=== PATIENT | female | born 2000 | race Caucasian/White ===

== ENCOUNTER 2019-07-20 10:44 | Inpatient (IN) | payer OTHER ==
--- NOTE | 2019-07-20 11:02 | ED ---
Psychiatric Complaint - HPI Summary HPI Summary: The patient is a 18 y/o F arriving by ambulance as 945 to [facility] from [facility] with a chief complaint of suicidal ideation and difficulty retaining memory gradually progressing for a month. She reports that she has been experiencing increasing thoughts of suicide, but she is unable to recall when these feelings began because she has also been unable to recall events both long -term and short-term. She made a list of dates and events that occurred, as well as times she has felt suicidal; thoughts of suicide in June, hopelessness, wrapping a cord around neck and jumping off the ledge of the library because she feels that she doesnt have a lot of friends or support. She has a history of anxiety but has not been medicated or been admitted for mental health before. No other PMHx. Mother has history of social issues, which the patient states she relates to. Nonsmoker, no EtOH, no substance use. Medications reviewed. Allergies noted. - History Of Current Complaint Chief Complaint: EDMentalHealth Time Seen by Provider: 07/20/19 10:44 Hx Obtained From: Patient Onset/Duration: Gradual Onset, Lasting Weeks, Still Present Severity Initially: Moderate Severity Currently: Moderate Character: Anxious Aggravating Factor(s): Other - social issues Alleviating Factor(s): Nothing Related History: Positive For: Prior Psychiatric Issues - anxiety Has Suicidal: Reports: Thoughts, With A Plan - Allergies/Home Medications Allergies/Adverse Reactions: Allergies Allergy/AdvReac Type Severity Reaction Status Date / Time amoxicillin Allergy Unknown Verified 07/20/19 11:25 Reaction Details eucalyptus Allergy Unknown Verified 07/20/19 11:25 Reaction Details Home Medications: Home Medications Multivitamins/Minerals TAB* [Theragran/minerals TAB*] 1 tab PO DAILY 07/20/19 [ History Confirmed 07/20/19] PMH/Surg Hx/FS Hx/Imm Hx Respiratory History: Denies: Hx Asthma Psychiatric History: Reports: Hx Anxiety - Surgical History Surgical History: None Surgery Procedure, Year, and Place: none Infectious Disease History: No Infectious Disease History: Denies: Traveled Outside the [place] in Last 30 Days - Family History Known Family History: Positive: Other - "social problems" in mother Negative: Cardiac Disease, Hypertension, Diabetes - Social History Alcohol Use: None Hx Substance Use: No Substance Use Type: Reports: None Hx Tobacco Use: No Smoking Status (MU): Never Smoked Tobacco Review of Systems Neurological: Other - difficulty with retaining memory Psychological: Other - sucidial ideation All Other Systems Reviewed And Are Negative: Yes Physical Exam - Summary Physical Exam Summary: Constitutional: Well-developed, Well-nourished, Alert. (-) Distressed Skin: Warm, Dry HENT: Normocephalic; Atraumatic Eyes: Conjunctiva normal Neck: Musculoskeletal ROM normal neck. (-) JVD, (-) Stridor, (-) Nuchal rigidity Cardio: Rhythm regular, rate normal, Heart sounds normal; Intact distal pulses; Radial pulses are 2+ and symmetric. (-) Murmur Pulmonary/Chest wall: Effort normal. (-) Respiratory distress, (-) Wheezes, (-) Rales Abd: Soft, (-) tenderness, (-) Distension, (-) Guarding, (-) Rebound Musculoskeletal: (-) Edema Lymph: (-) Cervical adenopathy Neuro: Alert, Oriented x3 Psych: Anxious Triage Information Reviewed: Yes Vital Signs On Initial Exam: Initial Vitals Temp Pulse Resp BP Pulse Ox 98.3 F 81 18 109/70 98 07/20/19 10:46 07/20/19 10:46 07/20/19 10:46 07/20/19 10:46 07/20/19 10:46 Vital Signs Reviewed: Yes - Eladia Coma Scale Best Eye Response: 4 - Spontaneous Best Motor Response: 6 - Obeys Commands Best Verbal Response: 5 - Oriented Coma Scale Total: 15 Procedures - Sedation Patient Received Moderate/Deep Sedation with Procedure: No Diagnostics - Vital Signs Vital Signs Temp Pulse Resp BP Pulse Ox 07/20/19 10:46 98.3 F 81 18 109/70 98 - Laboratory Result Diagrams: 07/20/19 11:04 07/20/19 11:04 Lab Statement: Any lab studies that have been ordered have been reviewed, and results considered in the medical decision making process. - CT Brain CT CT Interpretation Completed By: Radiologist Summary of CT Findings: Impression: No acute intracranial abnormality. Posterior fossa extra-axial cyst, compatible with an adenoid cystic. ED physician has reviewed this report. Re-Evaluation - Re-Evaluation First Eval Re-Evaluation Time: 11:00 Comment: Patient is medically clear for MHE. Second Eval Re-Evaluation Time: 13:15 Comment: Patient moved to [facility] for evaluation. She is calm and cooperative. Third Eval Re-Evaluation Time: 17:30 Comment: Dr. Farr, psychiatry, would like a Brain CT for the patient. Course/Dx - Course Course Of Treatment: 18 history of anxiety presents with suicidal ideation in the setting of social stressors as well as concern for memory loss. Physical exam normal neuro exam. Patient has extensive descriptions of intermittent memory loss, this is been a chronic ongoing event since high school, no new symptoms. Patient alert and oriented 3. Does not warrant further investigation at this time. Could be secondary to her concurrent psychiatric problems versus neurologic problems. We'll give outpatient neurologic referral. Patient to be seen by mental health team for suicidal ideation. Psychiatrist recommended head CT which is negative. Patient to be admitted to psychiatry. - Differential Dx/Clinical Impression Provider Diagnosis: Mood disorder - Physician Notifications Discussed Care Of Patient With: Komal Baumann - mental health warp dresser Time Discussed With Above Provider: 19:00 Instructed by Provider To: Other - Komal reports that Dr. Farr, psychiatry, has evaluated the patient and has determined that the patient is appropriate for admission, involuntarily; diagnosis of mood disorder Discharge ED - Sign-Out/Discharge Documenting (check all that apply): Patient Departure - Patient accepted for admission by Dr. Farr. - Discharge Plan Condition: Stable Disposition: PSYCHIATRIC FACILITY-[facility] [place] - Billing Disposition and Condition Condition: STABLE Disposition: Psychiatric Facility [facility] [place] - Attestation Statements Document Initiated by Laciee: Yes Documenting Scribe: Azul Moody Provider For Whom Rex is Documenting (Include Credential): Dr. Maurice Caceres MD Scribe Attestation: Azul Serrano scribed for Dr. Maurice Caceres MD on 07/20/19 at 2141. Scribe Documentation Reviewed: Yes Provider Attestation: The documentation as recorded by the Azul bautista accurately reflects the service I personally performed and the decisions made by me, Dr. Maurice Caceres MD Status of Scribe Document: Viewed
[2019-07-20 11:12] LABS: ABS Monocytes 0.3 10^3/ul (0-0.8); ABS Neutrophils 3.1 10^3/ul (1.5-7.7); Eosinophil % 0.8 %; Hematocrit 36 % (35-47); Hemoglobin 12.6 g/dL (12.0-16.0); Lymphocyte % 22.9 %; Mean Corpuscular HGB Conc 35 g/dL (31-36); Mean Corpuscular Hemoglobin 32 pg (27-31); Mean Corpuscular Volume 93 fL (80-97); Mean Platelet Volume 7.4 fL (7.4-10.4); Nucleated Red Blood Cells % 0.1; Platelet Count 296 10^3/uL (150-450); Red Blood Count 3.89 10^6 /uL (3.70-4.87); Red Cell Distribution Width 13 % (10-15); White Blood Count 4.5 10^3/uL (3.5-10.8)
[2019-07-20 11:35] LABS: ALT 21 U/L (7-52); AST 20 U/L (13-39); Albumin 4.1 g/dL (3.2-5.2); Alkaline Phosphatase 40 U/L (34-104); Anion Gap 5 mmol/L (2-11); BUN/Creatinine Ratio 21.7 (8-20); Blood Urea Nitrogen 13 mg/dL (6-24); CO2 Carbon Dioxide 29 mmol/L (22-32); Calcium 9.2 mg/dL (8.6-10.3); Chloride 105 mmol/L (101-111); EGFR African American 155.8 (>60); EGFR Non-African American 128.8 (>60); Globulin 2.1 g/dL (2-4); Glucose 103 mg/dL (70-100); HCG Pregnancy < 0.60 mIU/mL; Potassium 4.4 mmol/L (3.5-5.0); Sodium 139 mmol/L (135-145); Total Protein 6.2 g/dL (6.4-8.9)
[2019-07-20 11:55] LABS: TSH (Thyroid Stimulating Horm) 0.86 mcIU/mL (0.34-5.60)
[2019-07-20 12:17] LABS: Alcohol < 10 mg/dL (<10); Salicylate < 2.50 mg/dL (<30)
[2019-07-20 12:20] LABS: Acetaminophen < 15 mcg/mL
[2019-07-20 12:34] LABS: Urine Appearance Clear; Urine Bilirubin Negative (Negative); Urine Blood 1+ (Negative); Urine Color Yellow; Urine Glucose Negative (Negative); Urine Ketones Negative (Negative); Urine Nitrite Negative (Negative); Urine Protein Negative (Negative); Urine Specific Gravity 1.009 (1.010-1.030); Urine Urobilinogen Negative (Negative)
[2019-07-20 12:39] LABS: Urine Bacteria 1+ (Absent); Urine Red Blood Cell 2+(6-10/hpf) (Absent); Urine Squamous Epithelial Cell Present (Absent); Urine White Blood Cell Trace(0-5/hpf) (Absent)
[2019-07-20 13:02] LABS: Urine Benzodiazepine Screen None Detected (None Detect); Urine Opiates Screen None Detected (None Detect)
[2019-07-20] MEDS ORDERED: Al Hydrox/Mg Hydrox/Simet LIQ* 30 ML UDC PO PRN (22:09)
[2019-07-20] MEDS ORDERED: Acetaminophen TAB* 325 MG PO PRN (22:09)
[2019-07-20] MEDS ORDERED: risperiDONE TAB* 1 MG PO ONE (22:30)
--- NOTE | 2019-07-21 10:45 | HP ---
H&P (Free Text) History and Physical: Justification for admission: Immediate Safety. CC " I want to end my life" The patient was brought to [facility] by EMS sent by [facility]. The patient identifies being unable to remember names or events and becomes upset and believes there is something wrong with her. Over the last month she has felt suicidal with a plan to hang herself or jump into a gorge. She created a timeline that includes the things she is unable to remember. She thinkings about the things she is unable to remember over 12 times a day and that it causes her a great deal of distress leading her to think about suicide. She reported that she has not been socializing much. Denied access to firearms or stockpiles of medications. She reported excessive sleep and normal appetite. The patient denied homicidal ideation intent or plan. The patient denied auditory and/ or visual hallucinations. MDD She reported feeling depressed and having diminished interests which were found to be enjoyable in the past. She reported having crying spells , feeling empty inside, feelings of hopelessness , and worthlessness. Denied unintentional weight loss and appetite. Denied interruption of sleep , or feeling tired throughout the day. Denied oss of energy or lack of motivation to complete tasks. She reported having recurrent thoughts of . Anxiety Denied having panic attacks.She worries often about anything that she can worry about during that time. She has had uncomfortable or intrusive thoughts. She expressed that if she hits her foot on the chair she will purposely have to hit her other foot on the chair. Bipolar Denied symptoms of eric such as having many ideas at once. Denied increased talkativeness where no one can interrupt. Denied feeling irritable most of the time while having an persistent abundance of energy most of the day without the use of energy drinks, stimulants, or recreational drug use. Denied an increase in intensity in goal directed activities. Denied having the decreased need to sleep for days , having prolonged elevated mood , or feeling on top of the world. Denied impulsive risky sexual encounters. Denied spending money recklessly , going on spending sprees wiping out savings. Denied impulsively traveling out of town or country, having super elliott, and unrealistic wealth or fame. Psychosis Does not endorse hearing things that other people do not hear or seeing things other people do not see. Denied feeling that TV is making references. Denied feeling that people are spying , following , or reading their thoughts. Phobias: Patient denied having excessive fear of a particular thing or situation. Eating disorders: Patient denied having excessive eating habits or feelings of guilt after eating. Denied repeated episodes of self induced vomiting after eating. PTSD Denied flashbacks, nightmares and avoidance of a prior traumatic event. PAST PSYCHIATRIC HISTORY: Prior Diagnosis : None History of past Psychiatric Hospitalizations: No prior psychiatric admission. History of past suicide/homicide attempts : Denied past suicide attempts or self injurious behaviors. No history of violence. [facility] Medications: No prior trials of medication Guardianship: None. FAMILY HISTORY: - Suicide: Denied family history of suicide. - Mental illness: Aunt depression - Substance abuse: Uncle abuses alcohol SUBSTANCE ABUSE HISTORY: Denied using tobacco, heroin cocaine or other illicit substances. Denied abusing pills for recreational use. Denied past Substance abuse treatment. - EtOH: Used on a few occasions < 3 drinks in social setting. No associated legal issues, blackouts, seizures, DTs or past hospitalizations due to alcohol. SOCIAL HISTORY: - Denied a history of childhood physical and or sexual abuse Only child, [place] [facility] and raised by both parents. - Education: [employer] Student - Living situation: Currently lives in [facility] - Relationship: Single and has no children. - Legal history: Denied - service history: Denied PAST MEDICAL HISTORY: Denied heart disease, diabetes, cancer and/ or other medical conditions. - Allergies: Amoxicillin Eucalyptus Physical Exam: Please see ED note Mental Status Exam on Admission APPEARANCE : 18 year old female who appears stated age. Patient is not malodourous, and appears to have fair hygiene and grooming. BEHAVIOR: Cooperative , calm EYE CONTACT: Fair PSYCHOMOTOR ACTIVITY: No psychomotor agitation or retardation. MOVEMENTS: No abnormal movements observed. SPEECH : Normal rate, rhythm, volume and tone. MOOD : "Depressed " AFFECT : Type is depressed, Range is restricted Mood Congruent THOUGHT PROCESS: Formulated and organized in a logical, linear goal directed manner. No flight of ideas, neologism (made up words) , perseveration , tangential , loose associations , or circumstantiality. THOUGHT CONTENT: preoccupation about memory PERCEPTION: No current auditory or visual hallucinations. Doesnt appear to be responding to internal cues. No evidence of depersonalization , de-realization, or illusions SUICIDALITY suicidal ideation with plan. HOMICIDALITY Denied homicidal ideation, intent or plan. Insight/judgment: Fair insight and judgment ORIENTATION: Oriented to self, location, and time. Diagnosis on Admission: Major depressive disorder without psychotic features, Obsessive compulsive Disorder, generalized anxiety disorder. Assessment: 18 year old Female with no prior psychiatric histor came to the hospital with suicidal ideation and was admitted to the BSU at [facility]. Plan #Admit to BSU, Q15 minute observation. Start regular diet. Encourage participation in activities on the milieu. #Patient evaluated in ED and was determined by the emergency room Physician to be medically fit for admission to the BSU. # Justification for Admission: For immediate safety per outlined in the [facility] Hygiene Code. # The patient requires psychiatric inpatient admission at this time to assure safety, receive treatment and work toward stabilization. # Labs ordered: CBC, CMP, UDS, TSH, HBA1c, TSH, Toxicology screen, Urine analysis, and lipid profile. # MMPI ordered # EEG ordered # CT brain with out contrast completed results show posterior fossa extra axial cyst (which patient is aware of having since childhood) and no acute intercranial abnormality. Consult with the radiologist revealed that this is a arachnoid cyst and is a normal variant. # B-HCG was ordered and results are negative. # Obtain collateral information once release is signed. # Collaboration with Social Work # Start luvox 50mg po daily for depression , anxiety and OCD. #Goals before discharge include: To eliminate/ reduce suicidal ideation Tentative Discharge: Pending psychiatric stabilization The risks, benefits, and alternative treatment options were discussed as well as the risks of refusing treatment. After this discussion and an acknowledgement of this understanding was made. A risk/ benefit assessment of treatment was considered and discussed with the patient. When comparing the risks of treatment with the dangers of not receiving treatment, the benefits of treatment outweigh the treatment risks at this time. Risks of allergy, suicidal ideation, behavioral changes, dystonia, rashes, electrolyte imbalances, movement disorders, cardiac conduction changes, serotonin syndrome, metabolic risks were among some of the risks discussed. Sodium 139 mmol/L (135-145) 07/20/19 11:04 Potassium 4.4 mmol/L (3.5-5.0) 07/20/19 11:04 BUN 13 mg/dL (6-24) 07/20/19 11:04 Creatinine 0.60 mg/dL (0.51-0.95) 07/20/19 11:04 Calcium 9.2 mg/dL (8.6-10.3) 07/20/19 11:04 AST 20 U/L (13-39) 07/20/19 11:04 ALT 21 U/L (7-52) 07/20/19 11:04
[2019-07-21] MEDS: Vitamin THERAPEUTIC TAB PO SCH (12:05)
[2019-07-21] MEDS: CMCS: FluvoxaMINE (NF) 50 MG TAB PO SCH (14:34)
--- NOTE | 2019-07-21 19:52 | EEG ---
ELECTROENCEPHALOGRAPHY REPORT: DATE OF STUDY: 07/21/19 - ROOM #213 ORDERED BY: Lito Martinez MD. INDICATION: Ms. Pete is a 18-year-old female admitted to BSU for suicidal ideation. The patient has difficulty retaining information with gradual regression. She has memory loss both long and short term. She has trouble recalling her childhood without pictures. Since June, the patient has been having suicide thoughts. This EEG was obtained to evaluate for any epileptiform abnormalities or electrographic seizures. MEDICATIONS: 1. Multivitamin. 2. Tylenol. 3. Maalox. CLINICAL STATE: Awake and asleep. REPORT: The waking background showed appropriate organization with clearly defined anterior-posterior voltage and frequency gradients. There was a well- defined posterior dominant rhythm of 10 Hz, which was symmetrical and showed normal reactivity. Anteriorly, there was an expected pattern of lower voltage, irregular mixed faster frequency. Attenuation of the occipital rhythm accompanied drowsiness. The sleep background was appropriately organized with well-developed spindles and vertex waves. These sleep transients showed appropriate morphology and are bilaterally synchronous and symmetrical. Hyperventilation and photic stimulation were not performed. Duration of the recording 12:22 to 12:48. EKG showed a normal sinus rhythm with a rate of 60 beats per minute. CLINICAL IMPRESSION: This is a normal awake and asleep EEG. There were no epileptiform discharges or electrographic seizures. A normal interictal EEG does not exclude nor support the diagnosis of epilepsy. [id number]/[facility] #: [id number] MTDD
[2019-07-22 08:37] LABS: HDL Cholesterol 40.2 mg/dL
[2019-07-22] MEDS: Vitamin THERAPEUTIC TAB PO SCH (09:03)
[2019-07-22] MEDS: CMCS: FluvoxaMINE (NF) 50 MG TAB PO SCH (09:03)
--- NOTE | 2019-07-22 10:32 | PN ---
Subjective - Subjective Date of Service: 07/22/19 Service Type: 24033 Hosp care 35 min high complexity Subjective: Nursing Report: Patient was visible on unit, no behavioral incidents. Slept overnight. Attending group activities. CC: "I dont know what is wrong with me Patient was seen and evaluated today in the common room. The patient reported she feels horrible about herself. She often thinks (1-10 x daily) about the possibility of her parents . She reported having low energy levels. She often worries what others think of her and inquired what was said in treatment time about her. She feels powerless when she does not have control of situations She reported having adequate appetite and sleep. The patient reports attending and participating in day groups. Per nursing no behavioral issues or overnight events reported. Patient reported that she is tolerating medications without side effects. Objective - General Observations Appearance: Neat Appears Stated Age: Yes Stature: WNL Posture: WNL Eye Contact: Average Behavior/Activity: WNL - Interaction Observations Attitude Towards Examiner: Cooperative Stated Mood: Dysphoric Affect: Blunted Speech Pattern/Tone: Quiet Volume Thought Process: Coherent Perception: WNL Thought Content: Self-Deprecatory Hallucination Type: None Delusion Type: None - Cognitive Function Orientation: A&O x 4 Level of Consciousness: Awake - Medication Compliance Cooperative with Inpatient Medication Regimen: Yes - Group Participation Participates in Group Activities: Yes Assessment - Assessment Merits Inpatient Hospitalization: For Immediate Safety Clinical Impression: 18 year old Female with no prior psychiatric histor came to the hospital with suicidal ideation and was admitted to the BSU at [facility]. Plan - Plan Treatment Plan: Name: JOCELYN BLAKE Birthdate: 2000 [id number] #Q30 minute observation with staff pass . # The patient requires psychiatric inpatient admission at this time to assure safety, receive treatment and work toward stabilization. 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 Consult with the radiologist revealed that this is a arachnoid cyst and is a normal variant. # B-HCG was ordered and results are negative. # Obtained collateral information from mother # Collaboration with Social Work # Increase luvox 100mg po daily. #Goals before discharge include: To eliminate/ reduce suicidal ideation Tentative Discharge: Pending psychiatric stabilization Sodium 139 mmol/L (135-145) 07/20/19 11:04 Potassium 4.4 mmol/L (3.5-5.0) 07/20/19 11:04 BUN 13 mg/dL (6-24) 07/20/19 11:04 Creatinine 0.60 mg/dL (0.51-0.95) 07/20/19 11:04 Hemoglobin A1c 4.9 % (4.0-5.6) 07/22/19 07:57 Calcium 9.2 mg/dL (8.6-10.3) 07/20/19 11:04 AST 20 U/L (13-39) 07/20/19 11:04 ALT 21 U/L (7-52) 07/20/19 11:04 Triglycerides 78 mg/dL 07/22/19 07:57 Cholesterol 164 mg/dL 07/22/19 07:57 LDL Cholesterol 108 mg/dL 07/22/19 07:57 Continued Medication Management: Continue Outpt Medication Medications: Current Medications Acetaminophen (Tylenol Tab*) 650 mg PO Q4H PRN PRN Reason: PAIN or TEMP > 101 F Al Hydrox/Mg Hydrox/Simethicone (Maalox Plus*) 30 ml PO Q4H PRN PRN Reason: INDIGESTION Fluvoxamine Maleate (Luvox (Nf)) 100 mg PO DAILY [facility] Fluvoxamine Maleate (Fluvoxamine (Nf)) 50 mg PO ONCE ONE Stop: 07/22/19 11:01 Multivitamins (Theragran Tab*) 1 tab PO DAILY [facility] Last Admin: 07/22/19 09:03 Dose: 1 tab - Discharge Plan Discharge Plan: Inpatient Hospitalization
[2019-07-22] MEDS ORDERED: FLUVOXAMINE 50 MG PO ONE (11:00)
[2019-07-23] MEDS: FLUVOXAMINE 100 MG PO SCH (09:12)
[2019-07-23] MEDS: Vitamin THERAPEUTIC TAB PO SCH (09:14)
--- NOTE | 2019-07-23 11:46 | PN ---
BSU: Group Therapy Note - Service Type Service Type: 33038 Group Psychotherapy - Cognitive Behavioral Group Therapy ( CBT):Patient was attentive and participatory in CBT programming this morning, and remained in good behavioral control. Patient expressed positive insights regarding relevant treatment interventions and goals.
--- NOTE | 2019-07-23 14:24 | PN ---
Subjective - Subjective Date of Service: 07/23/19 Service Type: [id number] Hosp care 35 min high complexity Subjective: Nursing Report: Patient was visible on unit, no behavioral incidents. Slept overnight. Attending group activities. CC: "I dont see any changes Patient was seen and evaluated today in the common room. The patient reported she feels nervous around other peers on the unit. She reported that sometimes her parents " drive me crazy". She reported that she is doing well in school but considering taking time away from school. She believes that she doesn't have friends however 2 friends visited her in the hospital. She reported having adequate appetite and sleep. The patient reports attending and participating in day groups. Per nursing no behavioral issues or overnight events reported. Patient reported that she is tolerating medications without side effects. Objective - General Observations Appearance: Neat Stature: WNL Posture: WNL Eye Contact: Average Behavior/Activity: WNL - Interaction Observations Attitude Towards Examiner: Cooperative Stated Mood: Dysphoric Affect: Restricted Speech Pattern/Tone: Quiet Volume Thought Process: Goal Directed Perception: Derealization Thought Content: Preoccupation/Ruminations Hallucination Type: None Delusion Type: None - Cognitive Function Orientation: A&O x 4 Level of Consciousness: Awake Cognition: WNL Judgment Within Normal Limits: Yes - Medication Compliance Cooperative with Inpatient Medication Regimen: Yes - Group Participation Participates in Group Activities: Yes Assessment - Assessment Merits Inpatient Hospitalization: For Immediate Safety Clinical Impression: 18 year old Female with no prior psychiatric histor came to the hospital with suicidal ideation and was admitted to the BSU at [facility]. Plan - Plan Treatment Plan: Name: JOCELYN BLAKE Birthdate: 2000 [id number] #Q30 minute observation with staff pass . # Further neuropsych testing with Dr. Hernandez # The patient requires psychiatric inpatient admission at this time to assure safety, receive treatment and work toward stabilization. 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 Consult with the radiologist revealed that this is a arachnoid cyst and is a normal variant. # B-HCG was ordered and results are negative. # Obtained collateral information from mother # Family meeting took place with father on phone and mother in person they confirmed no stockpiles of medication or access to firearms # Collaboration with Social Work # Patient would benefit from CBT therapy with focus on realigning cognitive distortions #Continue luvox 100mg po daily. #Goals before discharge include: To eliminate/ reduce suicidal ideation Tentative Discharge: Pending psychiatric stabilization Sodium 139 mmol/L (135-145) 07/20/19 11:04 Potassium 4.4 mmol/L (3.5-5.0) 07/20/19 11:04 BUN 13 mg/dL (6-24) 07/20/19 11:04 Creatinine 0.60 mg/dL (0.51-0.95) 07/20/19 11:04 Hemoglobin A1c 4.9 % (4.0-5.6) 07/22/19 07:57 Calcium 9.2 mg/dL (8.6-10.3) 07/20/19 11:04 AST 20 U/L (13-39) 07/20/19 11:04 ALT 21 U/L (7-52) 07/20/19 11:04 Triglycerides 78 mg/dL 07/22/19 07:57 Cholesterol 164 mg/dL 07/22/19 07:57 LDL Cholesterol 108 mg/dL 07/22/19 07:57 Continued Medication Management: Continue Outpt Medication Medications: Current Medications Acetaminophen (Tylenol Tab*) 650 mg PO Q4H PRN PRN Reason: PAIN or TEMP > 101 F Al Hydrox/Mg Hydrox/Simethicone (Maalox Plus*) 30 ml PO Q4H PRN PRN Reason: INDIGESTION Fluvoxamine Maleate (Fluvoxamine (Nf)) 100 mg PO DAILY [facility] Last Admin: 07/23/19 09:12 Dose: 100 mg Multivitamins (Theragran Tab*) 1 tab PO DAILY [facility] Last Admin: 07/23/19 09:14 Dose: 1 tab - Discharge Plan Discharge Plan: Inpatient Hospitalization
[2019-07-24] MEDS: Vitamin THERAPEUTIC TAB PO SCH (08:22)
[2019-07-24] MEDS: FLUVOXAMINE 100 MG PO SCH (08:22)
--- NOTE | 2019-07-24 15:21 | PN ---
Subjective - Subjective Date of Service: 07/24/19 Service Type: 23410 Hosp care 15 min low complexity Subjective: Janice is seen in weekend coverage for Dr. Martinez. She endorses continued SI, as recently as this morning, but without plans or intent. Earlier today she had been experiencing somewhat intense feelings of restlessness and inability to sit still that responded well to a one time dose of propranolol. She is doing her school work on her computer and endorses speaking with the diversity manager at [employer] about accommodations to get caught up once she's discharged. Objective - General Observations Appearance: Well Groomed Appears Stated Age: Yes Stature: WNL Posture: WNL Eye Contact: Average Behavior/Activity: WNL - Interaction Observations Attitude Towards Examiner: Cooperative Stated Mood: Anxious Affect: Restricted Speech Pattern/Tone: Clear Thought Process: Coherent Thought Content: Preoccupation/Ruminations, Obsessional Thought Process: Lethality: Passive Wish Hallucination Type: None Delusion Type: None - Cognitive Function Orientation: A&O x 4 Level of Consciousness: Awake Cognition: WNL Estimated Intelligence: Above Normal Insight: WNL - Medication Compliance Cooperative with Inpatient Medication Regimen: Yes - Group Participation Participates in Group Activities: Yes Assessment - Assessment Merits Inpatient Hospitalization: For Immediate Safety, For Stabilization Inpatient DSM-V Dx: F32.2 Clinical Impression: 18 year old Female with no prior psychiatric histor came to the hospital with suicidal ideation and was admitted to the BSU at [facility]. BSU: Problem List - Patient Problems (1) MDD (major depressive disorder), single episode, severe Current Visit: Yes Status: Acute Priority: High Code(s): F32.2 - MAJOR DEPRESSV DISORD, SINGLE EPSD, SEV W/O PSYCH FEATURES SNOMED Code(s): 169924136813 Plan - Plan Treatment Plan: Name: JANICE BLAKE Birthdate: 2000 [id number] #Q30 minute observation with staff pass . # Further neuropsych testing with Dr. Hernandez # The patient requires psychiatric inpatient admission at this time to assure safety, receive treatment and work toward stabilization. 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 Consult with the radiologist revealed that this is a arachnoid cyst and is a normal variant. # B-HCG was ordered and results are negative. # Obtained collateral information from mother # Family meeting took place with father on phone and mother in person they confirmed no stockpiles of medication or access to firearms # Collaboration with Social Work # Patient would benefit from CBT therapy with focus on realigning cognitive distortions #Continue luvox 100mg po daily. #Goals before discharge include: To eliminate/ reduce suicidal ideation Tentative Discharge: Pending psychiatric stabilization Sodium 139 mmol/L (135-145) 07/20/19 11:04 Potassium 4.4 mmol/L (3.5-5.0) 07/20/19 11:04 BUN 13 mg/dL (6-24) 07/20/19 11:04 Creatinine 0.60 mg/dL (0.51-0.95) 07/20/19 11:04 Hemoglobin A1c 4.9 % (4.0-5.6) 07/22/19 07:57 Calcium 9.2 mg/dL (8.6-10.3) 07/20/19 11:04 AST 20 U/L (13-39) 07/20/19 11:04 ALT 21 U/L (7-52) 07/20/19 11:04 Triglycerides 78 mg/dL 07/22/19 07:57 Cholesterol 164 mg/dL 07/22/19 07:57 LDL Cholesterol 108 mg/dL 07/22/19 07:57 Continued Medication Management: Start Medication Medications: Current Medications Acetaminophen (Tylenol Tab*) 650 mg PO Q4H PRN PRN Reason: PAIN or TEMP > 101 F Al Hydrox/Mg Hydrox/Simethicone (Maalox Plus*) 30 ml PO Q4H PRN PRN Reason: INDIGESTION Fluvoxamine Maleate (Fluvoxamine (Nf)) 100 mg PO DAILY [facility] Last Admin: 07/24/19 08:22 Dose: 100 mg Multivitamins (Theragran Tab*) 1 tab PO DAILY [facility] Last Admin: 07/24/19 08:22 Dose: 1 tab Propranolol HCl (Inderal Tab*) 20 mg PO BID PRN PRN Reason: akathisia - Discharge Plan Discharge Plan: Inpatient Hospitalization
[2019-07-25] MEDS: Vitamin THERAPEUTIC TAB PO SCH (08:23)
[2019-07-25] MEDS: FLUVOXAMINE 100 MG PO SCH (08:23)
[2019-07-26] MEDS: Vitamin THERAPEUTIC TAB PO SCH (08:47)
[2019-07-26] MEDS: FLUVOXAMINE 100 MG PO SCH (08:47)
--- NOTE | 2019-07-26 11:30 | PN ---
Subjective - Subjective Date of Service: 07/26/19 Service Type: 37130 Hosp care 35 min high complexity Subjective: Nursing Report: Patient was visible on unit, no behavioral incidents. Slept overnight. Attending group activities. CC: "Nothing has changed Patient was seen and evaluated today in the comfort room. The patient reported she feels that she is not normal and that there is something wrong with her. She reported having distress over not being able the things in CBT group this morning. She reported having no symptomatic relief from anxiety. Her friends visited over the weekend. She had thoughts of ending it all after thinking about the time she went on a date and thought something was wrong with the sangeeta and thought to herself that there is something wrong with her. She reported having adequate appetite. She reported sleeping to the point where she has trouble with getting out of bed. The patient reports attending and participating in day groups. Per nursing no behavioral issues or overnight events reported. Patient reported that she is tolerating medications without side effects. Objective - General Observations Appearance: Neat Appears Stated Age: Yes Stature: WNL Posture: WNL Eye Contact: Average Behavior/Activity: WNL - Interaction Observations Attitude Towards Examiner: Anxious Stated Mood: Anxious Affect: Restricted Speech Pattern/Tone: Perseverating Thought Process: Goal Directed Perception: WNL Thought Content: Depressive Thought Process: Lethality: Passive Wish Hallucination Type: Denies Delusion Type: Denies - Cognitive Function Orientation: A&O x 4 Level of Consciousness: Awake Cognition: WNL - Medication Compliance Cooperative with Inpatient Medication Regimen: Yes - Group Participation Participates in Group Activities: Yes Assessment - Assessment Merits Inpatient Hospitalization: For Immediate Safety Inpatient DSM-V Dx: F32.2 Clinical Impression: 18 year old Female with no prior psychiatric histor came to the hospital with suicidal ideation and was admitted to the BSU at [facility]. Plan - Plan Treatment Plan: Name: JOCELYN BLAKE Birthdate: 2000 [id number] #Q30 minute observation with staff pass . # Further neuropsych testing with Dr. Hernandez # The patient requires psychiatric inpatient admission at this time to assure safety, receive treatment and work toward stabilization. 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 Consult with the radiologist revealed that this is a arachnoid cyst and is a normal variant. # B-HCG was ordered and results are negative. # Obtained collateral information from mother # Family meeting took place with father on phone and mother in person they confirmed no stockpiles of medication or access to firearms # Collaboration with Social Work # Patient would benefit from CBT therapy with focus on realigning cognitive distortions #Discontinue luvox 100mg po daily # Start cymbalta 20mg daily for now, acknowledge enzyme inhibition can increase serum concentrations # Start propranolol 10mg BID for anxiety #Goals before discharge include: To eliminate/ reduce suicidal ideation Tentative Discharge: Pending psychiatric stabilization Sodium 139 mmol/L (135-145) 07/20/19 11:04 Potassium 4.4 mmol/L (3.5-5.0) 07/20/19 11:04 BUN 13 mg/dL (6-24) 07/20/19 11:04 Creatinine 0.60 mg/dL (0.51-0.95) 07/20/19 11:04 Hemoglobin A1c 4.9 % (4.0-5.6) 07/22/19 07:57 Calcium 9.2 mg/dL (8.6-10.3) 07/20/19 11:04 AST 20 U/L (13-39) 07/20/19 11:04 ALT 21 U/L (7-52) 07/20/19 11:04 Triglycerides 78 mg/dL 07/22/19 07:57 Cholesterol 164 mg/dL 07/22/19 07:57 LDL Cholesterol 108 mg/dL 07/22/19 07:57 Continued Medication Management: Continue Outpt Medication Medications: Current Medications Acetaminophen (Tylenol Tab*) 650 mg PO Q4H PRN PRN Reason: PAIN or TEMP > 101 F Al Hydrox/Mg Hydrox/Simethicone (Maalox Plus*) 30 ml PO Q4H PRN PRN Reason: INDIGESTION Duloxetine HCl (Cymbalta Cap*) 20 mg PO DAILY [facility] Multivitamins (Theragran Tab*) 1 tab PO DAILY [facility] Last Admin: 07/26/19 08:47 Dose: 1 tab Propranolol HCl (Inderal Tab*) 20 mg PO BID PRN PRN Reason: akathisia - Discharge Plan Discharge Plan: Inpatient Hospitalization
[2019-07-26] MEDS: DULoxetine DR CAP* 20 MG CAP.DR PO SCH (12:48)
[2019-07-27] MEDS: Vitamin THERAPEUTIC TAB PO SCH (10:02)
[2019-07-27] MEDS: DULoxetine DR CAP* 20 MG CAP.DR PO SCH (10:02)
--- NOTE | 2019-07-27 12:49 | PN ---
Subjective - Subjective Date of Service: 07/27/19 Service Type: 76607 Hosp care 35 min high complexity Subjective: Nursing Report: Patient was visible on unit, no behavioral incidents. Slept overnight. Attending group activities. CC: "I feel that I cant remember things" Patient was seen and evaluated today in the common room. The patient reported she wrote down in her journal the times that she has anxiety and the ways that she cathie with it. She reported that a peer made her anxious and she was able to work through it. She is hopeful for discharge tomorrow and plans to go back to [place]. She reported having adequate appetite and sleep. The patient reports attending and participating in day groups. Per nursing no behavioral issues or overnight events reported. Patient reported that she is tolerating medications without side effects. Objective - General Observations Appearance: Neat Appears Stated Age: Yes Stature: WNL Posture: WNL Eye Contact: Average Behavior/Activity: WNL - Interaction Observations Attitude Towards Examiner: Cooperative Stated Mood: Anxious Affect: Restricted Speech Pattern/Tone: Clear Thought Process: Coherent Perception: WNL Thought Content: WNL Hallucination Type: Denies Delusion Type: Denies - Cognitive Function Orientation: A&O x 4 Level of Consciousness: Awake Cognition: WNL - Medication Compliance Cooperative with Inpatient Medication Regimen: Yes - Group Participation Participates in Group Activities: Yes Assessment - Assessment Merits Inpatient Hospitalization: For Immediate Safety Inpatient DSM-V Dx: F32.2 Clinical Impression: 18 year old Female with no prior psychiatric histor came to the hospital with suicidal ideation and was admitted to the BSU at [facility]. Plan - Plan Treatment Plan: Name: JOCELYN BLAKE Birthdate: 2000 [id number] #Q30 minute observation with staff pass. # Further neuropsych testing with Dr. Hernandez showed that her memory is within normal range. # The patient requires psychiatric inpatient admission at this time to assure safety, receive treatment and work toward stabilization. # MMPI ordered showing elevated scale of anxiety and neurosis. 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 Consult with the radiologist revealed that this is a arachnoid cyst and is a normal variant. # B-HCG was ordered and results are negative. #Met with her mother who is in agreement with the plan # Family meeting took place with father on phone and mother in person they confirmed no stockpiles of medication or access to firearms # Collaboration with Social Work # [facility] appointment at 1030am tomorrow with Mitch # Patient would benefit from CBT therapy with focus on realigning cognitive distortions # Increase cymbalta 30mg daily # Continue propranolol 10mg BID for anxiety # Mother plans to arrange outpatient follow up in [place] with PCP and she will return to [place] in August to follow up with [facility]. #Goals before discharge include: To eliminate/ reduce suicidal ideation Tentative Discharge: Tomorrow at 830am Sodium 139 mmol/L (135-145) 07/20/19 11:04 Potassium 4.4 mmol/L (3.5-5.0) 07/20/19 11:04 BUN 13 mg/dL (6-24) 07/20/19 11:04 Creatinine 0.60 mg/dL (0.51-0.95) 07/20/19 11:04 Hemoglobin A1c 4.9 % (4.0-5.6) 07/22/19 07:57 Calcium 9.2 mg/dL (8.6-10.3) 07/20/19 11:04 AST 20 U/L (13-39) 07/20/19 11:04 ALT 21 U/L (7-52) 07/20/19 11:04 Triglycerides 78 mg/dL 07/22/19 07:57 Cholesterol 164 mg/dL 07/22/19 07:57 LDL Cholesterol 108 mg/dL 07/22/19 07:57 Continued Medication Management: Continue Outpt Medication Medications: Current Medications Acetaminophen (Tylenol Tab*) 650 mg PO Q4H PRN PRN Reason: PAIN or TEMP > 101 F Al Hydrox/Mg Hydrox/Simethicone (Maalox Plus*) 30 ml PO Q4H PRN PRN Reason: INDIGESTION Duloxetine HCl (Cymbalta Cap*) 30 mg PO DAILY [facility] Multivitamins (Theragran Tab*) 1 tab PO DAILY [facility] Last Admin: 07/27/19 10:02 Dose: 1 tab Propranolol HCl (Inderal Tab*) 10 mg PO BID [facility] Last Admin: 07/27/19 10:02 Dose: 10 mg - Discharge Plan Discharge Plan: Inpatient Hospitalization Outpatient Program: Counseling[facility] Services at [place]
--- NOTE | 2019-07-28 08:59 | DS ---
Subjective - Subjective Service Types: [id number] [facility] Day Mgmt complex over 30 min Discharge Date: 07/28/19 Subjective: CC: "I know some of my thoughts are not true " Patient looks forward to [facility] meeting and seeing her friends. Her mother picked her up at 830am and she plans to see Mitch at [employer] at 1030am today. Patient reported being less anxious. The patient was seen and evaluated before discharge today. The patient reported having adequate appetite and sleep. The patient reports attending and participating in day groups. Per nursing no behavioral issues or overnight events reported. Patient reported tolerating medications without side effects. Justification for admission: Immediate Safety. CC " I want to end my life" The patient was brought to [facility] by EMS sent by [facility]. The patient identifies being unable to remember names or events and becomes upset and believes there is something wrong with her. Over the last month she has felt suicidal with a plan to hang herself or jump into a gorge. She created a timeline that includes the things she is unable to remember. She thinkings about the things she is unable to remember over 12 times a day and that it causes her a great deal of distress leading her to think about suicide. She reported that she has not been socializing much. Denied access to firearms or stockpiles of medications. She reported excessive sleep and normal appetite. The patient denied homicidal ideation intent or plan. The patient denied auditory and/ or visual hallucinations. MDD She reported feeling depressed and having diminished interests which were found to be enjoyable in the past. She reported having crying spells , feeling empty inside, feelings of hopelessness , and worthlessness. Denied unintentional weight loss and appetite. Denied interruption of sleep , or feeling tired throughout the day. Denied oss of energy or lack of motivation to complete tasks. She reported having recurrent thoughts of . Anxiety Denied having panic attacks.She worries often about anything that she can worry about during that time. She has had uncomfortable or intrusive thoughts. She expressed that if she hits her foot on the chair she will purposely have to hit her other foot on the chair. Bipolar Denied symptoms of eric such as having many ideas at once. Denied increased talkativeness where no one can interrupt. Denied feeling irritable most of the time while having an persistent abundance of energy most of the day without the use of energy drinks, stimulants, or recreational drug use. Denied an increase in intensity in goal directed activities. Denied having the decreased need to sleep for days , having prolonged elevated mood , or feeling on top of the world. Denied impulsive risky sexual encounters. Denied spending money recklessly , going on spending sprees wiping out savings. Denied impulsively traveling out of town or country, having super [place], and unrealistic wealth or fame. Psychosis Does not endorse hearing things that other people do not hear or seeing things other people do not see. Denied feeling that TV is making references. Denied feeling that people are spying , following , or reading their thoughts. Phobias: Patient denied having excessive fear of a particular thing or situation. Eating disorders: Patient denied having excessive eating habits or feelings of guilt after eating. Denied repeated episodes of self induced vomiting after eating. PTSD Denied flashbacks, nightmares and avoidance of a prior traumatic event. PAST PSYCHIATRIC HISTORY: Prior Diagnosis : None History of past Psychiatric Hospitalizations: No prior psychiatric admission. History of past suicide/homicide attempts : Denied past suicide attempts or self injurious behaviors. No history of violence. Outpatient follow-up: [facility] Medications: No prior trials of medication Guardianship: None. FAMILY HISTORY: - Suicide: Denied family history of suicide. - Mental illness: Aunt depression - Substance abuse: Uncle abuses alcohol SUBSTANCE ABUSE HISTORY: Denied using tobacco, heroin cocaine or other illicit substances. Denied abusing pills for recreational use. Denied past Substance abuse treatment. - EtOH: Used on a few occasions < 3 drinks in social setting. No associated legal issues, blackouts, seizures, DTs or past hospitalizations due to alcohol. SOCIAL HISTORY: - Denied a history of childhood physical and or sexual abuse Only child, [place] [facility] and raised by both parents. - Education: [employer] Student - Living situation: Currently lives in [facility] - Relationship: Single and has no children. - Legal history: Denied - service history: Denied PAST MEDICAL HISTORY: Denied heart disease, diabetes, cancer and/ or other medical conditions. - Allergies: Amoxicillin Eucalyptus Physical Exam: Please see ED note Mental Status Exam on Admission APPEARANCE : 18 year old female who appears stated age. Patient is not malodourous, and appears to have fair hygiene and grooming. BEHAVIOR: Cooperative , calm EYE CONTACT: Fair PSYCHOMOTOR ACTIVITY: No psychomotor agitation or retardation. MOVEMENTS: No abnormal movements observed. SPEECH : Normal rate, rhythm, volume and tone. MOOD : "Depressed " AFFECT : Type is depressed, Range is restricted Mood Congruent THOUGHT PROCESS: Formulated and organized in a logical, linear goal directed manner. No flight of ideas, neologism (made up words) , perseveration , tangential , loose associations , or circumstantiality. THOUGHT CONTENT: preoccupation about memory PERCEPTION: No current auditory or visual hallucinations. Doesnt appear to be responding to internal cues. No evidence of depersonalization , de-realization, or illusions SUICIDALITY suicidal ideation with plan. HOMICIDALITY Denied homicidal ideation, intent or plan. Insight/judgment: Fair insight and judgment ORIENTATION: Oriented to self, location, and time. Diagnosis on Admission: Major depressive disorder without psychotic features, Obsessive compulsive Disorder, generalized anxiety disorder. Diagnosis on Discharge: Major depressive disorder in partial remission, Obsessive compulsive Disorder, Generalized anxiety disorder. Condition at the time of discharge: At the time of discharge patient showed improvement of sleep and appetite. The patient was not a danger to self or others. The patient denied suicidal ideation, intent or plan. The patient denied homicidal targets, ideation, intent or plan. This patient participated in psychosocial rehabilitation and gained some insight into problems. The patient gained insight into mental illness, triggers, and treatment. The patient took medication as prescribed. The patient denied side effects of medication and objective signs of side effects were not evident. Therapy Resources were offered to the patient. Patient was given a supply of prescriptions at the time of discharge. The patient plans to attend follow up care with the follow up arrangements that were discussed and put in place. Patient was asked to keep appointments as scheduled, take medication as prescribed, have routine follow up care with their primary care physician and refrain from any use of alcohol or drugs. Objective - General Observations Appearance: Disheveled Appears Stated Age: Yes Stature: WNL Posture: WNL Behavior/Activity: WNL - Interaction Observations Attitude Towards Examiner: Cooperative Stated Mood: Euthymic Affect: Restricted Speech Pattern/Tone: Clear, Appropriate Thought Process: Coherent Perception: WNL Thought Content: WNL Hallucination Type: None Delusion Type: None - Cognitive Function Orientation: A&O x 4 Level of Consciousness: Awake Cognition: WNL - Medication Compliance Cooperative with Inpatient Medication Regimen: Yes - Group Participation Participates in Group Activities: Yes Treatment Course & Assessment Clinical Course & Impression: Hospital course part A: 18 year old Female with no prior psychiatric histor came to the hospital with suicidal ideation and was admitted to the BSU at [facility]. Hospital course part B: Labs ordered included CBC, CMP, UDS, TSH, HBA1c, TSH, EEG, CT brain, Toxicology screen, Urine analysis, and lipid profile. Labs were reviewed and did not require the need for further evaluation. Vital signs were monitored during the course of admission. 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 Consult with the radiologist revealed that this is a arachnoid cyst and is a normal variant. EEG completed with normal results MMPI was ordered and indicated elevated scales of anxiety and neurosis and interpersonal issues. Further neuropsych testing with Dr. Hernandez showed that her memory is within normal range. The patient was admitted to the adult behavioral unit and placed on 15 minute check for safety. At a later time the patient was on Q30 minute observation and staff pass privileges. With those limits being extended, patient was safe on all checks and there were no occurrence of behavioral incidents. The patient did well on the unit and went to groups. Interacted with peers had adequate sleep and regular appetite. Tolerated medication changes without side effects. Group therapy and services were offered. The risks, benefits, and alternative treatment options were discussed as well as of the risks of refusing treatment. Treatment associated risks discussed. After this discussion the patient made an acknowledgement of this understanding. Follow up care appointments were put in place. Monitoring for metabolic changes was reviewed and it was emphasized to the patient to be continued to be monitored upon discharge. The patient was informed not to abruptly stop or start new medications before consulting with a medical professional. Improvements in patient from the time of admission include: Improved affect, sleep and decrease in anxiety. The patient expressed readiness for discharge home. The patient presents with a broader range of affect, and the absence of depressed mood. The patient denied suicidal and or homicidal ideation intent or plan. Overall, the patient responded well to inpatient treatment as evidenced by their report of strengthening of coping mechanisms, reduced distress, and more positive outlook on circumstances. Of note there was an improvement of recognizing how emotional state can effect mood and behavior. Safety precautions were put in place which included involving the patient and their family to closely monitor for changes in mental state. In addition, implementing follow up care, screening for the need to remove/securing firearms , weapons and stockpile of medications. Patient/ family instructed to immediately call 911 should any safety concerns arise. B-HCG is negative for current . She was informed of the risks associated with medication in . In the event that she becomes in the future and was advised to talk with her outpatient healthcare provider about starting or stopping medications during . The patient was advised of the 24 hour / 7 days a week availability of the emergency room and to call 911 in the event of an emergency such as being suicidal and/ or homicidal. The patient was informed of the contact information for [facility], Suicide Prevention and Crisis Services, National Suicide Prevention Lifeline, [facility], Alcoholics Anonymous, and [facility]. Medications started included luvox 50mg po daily and increased to 100mg daily, patient was discontinued and started on cymbalta 20mg daily and increased to 30mg daily before discharge. Patient was started on propranolol 10mg BID for anxiety. Patient reported being less anxious with current treatment and from a objective perspective showed brighter affect. Family meeting took place before discharge. The family confirmed that the patient is at their baseline. At this time both the patient and family are eager for discharge and are in agreement with the discharge plan and can safely receive care in the less restrictive outpatient setting. They were advised on how the days following discharge can be a vulnerable period and to look out for warning signs associated with decompensation and progression of mental illness. They were notified of the resources available in the event these situations arise and confirmed that the patient has no access to firearms or stockpiles of medications. Mother plans to oversee medications while home in [place]. Patients parents plan to monitor the patient during her break at home and in the event of a emergency plan to call 911 or go to the emergency room. Patient was not assaultive or a behavioral problem during the course of admission. The patient showed good hygiene and was able to carry out activities of daily living. Patient will be discharged to live at home. Patient was picked up by mother. Follow up appointment at [facility] 07/28/19 at 1030am and PCP in [place] on 07/30/19. Patient informed of follow up appointment times. See more details for follow up care in the discharge plan. Risk factors were mitigated by establishing the patients baseline with close contacts and arranging a family meeting. Implementing precautionary safety measures by confirming no stockpiles of medications and no access to firearms , providing mental health treatment, stabilization of depressive and anxiety features, arrangement of outpatient continuation of care, as well as provided a supportive care environment and therapy resources during the course of hospitalization. Safety plan was reviewed with the patient and treatment team and the patient verbalized steps to ensure their safety. Risk factors: , single, recent depressive episode and anxiety disorder. Protective factors: Currently no suicidal ideation, intent or plan. No prior suicide attempts. Lives with others. Has social/ family support system. No history of service. Currently no feelings of hopelessness, not in an occupation of social isolation, doesnt have multiple medical conditions, no family history of suicide, doesnt have access to firearms. Doesnt have command hallucinations and or psychotic features at this time. No current substance abuse. No current alcohol abuse. Not an anniversary of a loss of a loved one. No changes in relationship status , housing, job, or school. Currently future orientated. Patient engaged in treatment and compliant with medication. Sodium 139 mmol/L (135-145) 07/20/19 11:04 Potassium 4.4 mmol/L (3.5-5.0) 07/20/19 11:04 BUN 13 mg/dL (6-24) 07/20/19 11:04 Creatinine 0.60 mg/dL (0.51-0.95) 07/20/19 11:04 Hemoglobin A1c 4.9 % (4.0-5.6) 07/22/19 07:57 Calcium 9.2 mg/dL (8.6-10.3) 07/20/19 11:04 AST 20 U/L (13-39) 07/20/19 11:04 ALT 21 U/L (7-52) 07/20/19 11:04 Triglycerides 78 mg/dL 07/22/19 07:57 Cholesterol 164 mg/dL 07/22/19 07:57 LDL Cholesterol 108 mg/dL 07/22/19 07:57 Merits Inpatient Hospitalization: No Clear for Discharge: Adequate Clinical Respons Inpatient DSM-V Dx: F32.2 Discharge Planning - Discharge Planning Discharge Plan: Outpatient Follow Up Outpatient Program: Counseling/Psych Services at [facility] Recommendations for Continuing Care: Medication Management Medications: Current Medications Acetaminophen (Tylenol Tab*) 650 mg PO Q4H PRN PRN Reason: PAIN or TEMP > 101 F Al Hydrox/Mg Hydrox/Simethicone (Maalox Plus*) 30 ml PO Q4H PRN PRN Reason: INDIGESTION Duloxetine HCl (Cymbalta Cap*) 30 mg PO DAILY [facility] Multivitamins (Theragran Tab*) 1 tab PO DAILY [facility] Last Admin: 07/27/19 10:02 Dose: 1 tab Propranolol HCl (Inderal Tab*) 10 mg PO BID [facility] Last Admin: 07/27/19 21:11 Dose: 10 mg Discharge Planning: Prescriptions provided for discharge [x] Yes [] No Follow up care details as per social work arrangements. Patient response to discharge plan: [x] eager for discharge [] agreeable with discharge plan [] ambivalent about discharge [] disagrees with discharge today
[2019-07-28] MEDS ORDERED: DULoxetine DR CAP* 30 MG CAP.DR PO SCH (09:00)
[2019-07-28] MEDS: Vitamin THERAPEUTIC TAB PO SCH (09:20)
[2019-07-28 10:17] VITALS: BP 107/61
--- NOTE | 2019-08-02 13:34 | CONS ---
PSYCHOLOGICAL REPORT: DATE OF CONSULT: 07/22/19 PROCEDURE CODE: [id number] REASON FOR REFERRAL: Janice was referred for personality and psychometric assessment secondary to her complaints of difficulty with recall. TESTS ADMINISTERED: Janice completed the [place] Multiphasic Personality Inventory-2 (MMPI-2) as well as the Terrence Adult Intelligence Scale-IV edition (WAIS-IV) and was given feedback in individual conversation regarding test results on either. RELEVANT HISTORY: Janice is a 18-year-old female attending [employer]. She is originally from [place], having attended college, her first year near her home, outside of [employer] [employer] and then transferred to [employer] this past semester. Janice describes difficulties with social adjustment since moving to [place], describing not feeling as though she has made good connection socially with friends and indeed has difficulty remembering people's names that she has met, this frustrates her a great deal and has in part gotten her to the point where she worries that there is "something wrong with me." Despite this, she has done well academically and does not associate problems with anxiety with academic performance. Janice was sent to [facility] by EMS through [facility] after she had expressed suicidal ruminations while being seen there. She had described having thoughts to hang herself or jump into the gorge and endorses driven with these thoughts the prior weeks before expressing them to a therapist. Janice describes historically having periods of depression and crying but this is her first inpatient hospitalization. She did not endorse symptoms consistent with any manic type difficulties and does not associate her problems with recall with any particular event. She reliably denies having had any traumatic brain injury events and feels that it has been an encroaching symptom that has worsened in recent weeks. Janice presents with fair affect and is cooperative with all efforts to treat and assess. She is very pleasant in individual conversation and future oriented describing goals and interest both in terms of academics as well as personal milestones in life. She expresses gratitude for having a supportive family and indeed her mother has come from [place] to visit. She denies any psychotic symptomatology and impresses as improving from inpatient treatment. TEST RESULTS: Janice's MMPI-2 reveals an elevated profile consistent with persons who have endorsed cynical and pessimistic thoughts and beliefs on validity indices. She subsequently elevates depression and anxiety as her primary symptomatology but also has elevated 4 of the other scales to lesser degrees including a very low score occurring on the masculine - feminine scale that is descriptive of a person who may exhibit dependent personality trait difficulties. Persons who are low on this scale may feel hopeless and helpless , but often adapt a rather passive approach to decision making. Concerns are possible hostile dependent relationship developments either in personal or in professional context. Ongoing treatment should continue to rule out for any characterological vulnerabilities consistent with either borderline or dependent personality features. Current concerns point more towards dependent concerns as Janice denies history of self injury or in a great deal of relational distress. As anticipated, Janice did reasonably well on this administration of the WAIS-IV having attained a full scale IQ of 117 which falls at the 87th percentile for intellectual functioning. Her verbal comprehension index was her strongest effort having attained an IQ of 122 here which falls at the 93rd percentile. Her perceptual reasoning index was assessed at 109 which falls at the 73rd percentile, while her working memory index was similarly assessed at 108 which falls at the 70th percentile. Also of particular interest was her processing speed index, was found to be 114 which falls at the 82nd percentile of intellectual function. IMPRESSION AND RECOMMENDATIONS: As anticipated, Janice did quite well in psychometric testing with reasonably balanced scores occurring. Her efforts on this administration of the WAIS-IV do not reveal any likely neurological etiology for her difficulties with recall but instead buttress concerns regarding more likely emotional context to her difficulties with working memory. The basic premise that someone with impaired memory could do well at [employer] seems to hold here with concerns regarding her personality testing substantial for her elevated anxiety index. This likely that either depression or anxiety is likely to be the culprit for her difficulties with recall as well as ongoing adjustment to having moved from [place] to [place] with no prior social supports in place. Janice was reassured that there is no apparent neurological cause to her difficulties and recall and responded positively to both individual and group discussion addressing how negative emotions can help render performance in such given indices. Janice impressed as having benefitted from her stay on the unit as her affect improved markedly by the end of her stay and she expressed relief from suicidal thoughts. Ongoing difficulties with recall may continue to be a problem for her although she seems to be garnering insights about how negative emotions can be the problem rather than any real neurological phenomenon occurring. Diagnostic impression supports major depressive episode severe without psychosis with continued efforts to rule out any dependent personality features that may become apparent. [id number]/[facility] #: [id number] MTDD
== END 2019-07-28 08:34 | disposition home or self-care (01) | DRG 751 ==
LOC: ED 10:44 → BSU 20:00
PROVIDERS: ADMIT Psychiatry & Neurology Psychiatry; ATTEND Psychiatry & Neurology Psychiatry
DX: F32.2 Major depressive disorder, single episode, severe without psychotic features (principal); R45.851 Suicidal ideations; F42.9 Obsessive-compulsive disorder, unspecified; F41.1 Generalized anxiety disorder; Z81.8 Family history of other mental and behavioral disorders; Z81.1 Family history of alcohol abuse and dependence; Z88.1 Allergy status to other antibiotic agents; Z91.048 Other nonmedicinal substance allergy status
CPT/HCPCS: 36415; 70450; 80053; 80061; 80307; 80320; 80329; 81003; 81015; 83036; 84443; 84702; 85025; 87086; 90853; 95819; 99222; 99231; 99233; 99238; 99284; A9270-GY; G0480